=== PATIENT | female | born 1950 | race African-American/Black ===

== ENCOUNTER 2016-11-18 20:05 | Emergency (ER) | payer MEDICARE ==
--- NOTE | ~2016-11-18 | CT71 ---
[facility] A Service [facility] RADIOLOGY TEXT RESULTS PATIENT: CHAIM BLANDON LOCATION: [place] : 52 UNIT #: [id number] AGE: [address]: Lin Flores MD SEX: F ORDER DR: [id number] [facility] [address]. [place], [place] [address] [id number] E MR#: [id number] #: [id number] NAME: CHAIM BLANDON : 1950 SEX: F STUDY DATE/TIME: 11/18/2016 23:22 UNIT: [place] ROOM: STUDY DESCRIPTION: CT Head Wo Contrast Attending Physician: Lin Flores M.D. Ordering Physician: Lin Flores M.D. Primary Care Physician: Uma Chin M.D. MEDICAL IMAGING REPORT This report is preliminary unless electronic signature is present EXAM CT head, noncontrast, 11/18/2016 HISTORY 65-year-old female in the ED after head injury. Fell earlier today. Posterior head laceration and pain. Ethanol intoxication is noted. She states she had an additional fall about 2 weeks ago and has been dizzy since that time. TECHNIQUE CT examination of the head was performed without IV contrast. This CT exam was performed with one or more of the following radiation dose reduction techniques: automatic exposure control, adjustment of mA and/or kV according to patient size, and iterative reconstruction. FINDINGS No acute intracranial abnormality is identified, and there is no visible skull fracture. No evidence of intracranial hemorrhage, mass, mass effect, cerebral edema or hydrocephalus. Incidentally noted old post-traumatic deformity of the medial wall left orbit. No change since 05/17/2016. IMPRESSION 1. Negative head CT examination. 2. Old blowout fracture deformity of the medial wall left orbit. 3. No change since 05/17/2016. Dictated by... Tomás Zaragoza M.D. [facility] A Service [facility] RADIOLOGY TEXT RESULTS PATIENT: CHAIM BLANDON LOCATION: [place] : 54 UNIT #: [id number] AGE: [address]: Lin Flores MD SEX: F ORDER DR: THIS IS AN ELECTRONICALLY VERIFIED REPORT Tomás Zaragoza M.D. at 11/19/2016 9:55 PM JAGW/thee TD: 11/19/2016 10:07 JOB #: [id number] MEDICAL IMAGING REPORT Page 1 of 1 COPY
--- NOTE | ~2016-11-18 | EKG ---
PATIENT: CHAIM BLANDON UNIT #: [id number] Ventricular Rate: 53 BPM Atrial Rate: 53 BPM P-R Interval: 218 ms QRS Duration: 100 ms Q-T Interval: 476 ms QTC Calculation(Bezet): 446 ms P Retsof: 70 degrees Calculated R [place]sof: 23 degrees Calculated T [place]so[place]: 26 degrees Diagnosis Line: Sinus bradycardia with 1st degree A-V block Diagnosis Line: Otherwise normal ECG Diagnosis Line: Diagnosis Line: Confirmed by KATHRYN PURI MD ([id number]) on Diagnosis Line: 11/19/2016 10:06:13 PM INTERPRETING MD: GINA
--- NOTE | ~2016-11-18 | CT52 ---
[facility] A Service of [facility] RADIOLOGY TEXT RESULTS PATIENT: CHAIM BLANDON LOCATION: [facility] : 52 UNIT #: [id number] AGE: [address]: Lin Flores MD SEX: F ORDER DR: [id number] [place] [id number] [facility]. [place], [place] [address] [id number] E MR#: [id number] Acc #: [id number] NAME: CHAIM BLANDON : 1950 SEX: F STUDY DATE/TIME: 11/18/2016 23:27 UNIT: [facility] ROOM: STUDY DESCRIPTION: CT Cervical Spine Wo Cont Attending Physician: Lin Flores M.D. Ordering Physician: Lin Flores M.D. Primary Care Physician: Uma Chin M.D. MEDICAL IMAGING REPORT This report is preliminary unless electronic signature is present EXAM CT cervical spine, 11/18/2016. HISTORY 65-year-old female in the ED after a head injury. Fell. Posterior head laceration. Ethanol intoxication. TECHNIQUE Thin-section axial CT images were obtained from the skull base through the upper margin of T2. Sagittal and coronal images were reconstructed. This CT exam was performed with one or more of the following radiation dose reduction techniques: automatic exposure control, adjustment of mA and/or kV according to patient size, and iterative reconstruction. FINDINGS No fracture or other acute osseous abnormality is demonstrated. Moderately severe degenerative disc space changes at C4-5 and C5-6, including posterior vertebral osteophyte formation. Mild disc space narrowing at C6-7. Cervical vertebral alignment is normal. Reversal of cervical lordosis is noted but is most likely positional. No significant change since the previous study of 05/17/2016. IMPRESSION 1. No acute osseous abnormality. 2. Multilevel degenerative disc space changes, greatest at C4-5 and C5-6. 3. Reversal of cervical lordosis. Cervical vertebral alignment is normal. 4. No change since 05/17/2016. [facility] A Service [facility] RADIOLOGY TEXT RESULTS PATIENT: CHAIM BLANDON LOCATION: [place] : 54 UNIT #: [id number] AGE: [address]: Lin Flores MD SEX: F ORDER DR: Dictated by... Tomás Zaragoza M.D. THIS IS AN ELECTRONICALLY VERIFIED REPORT Tomás Zaragoza M.D. at 11/19/2016 9:55 PM RGW/kamran TD: 11/19/2016 10:11 JOB #: [id number] MEDICAL IMAGING REPORT Page 1 of 1 COPY
--- NOTE | ~2016-11-18 | CR72 ---
[facility] A Service of [facility] RADIOLOGY TEXT RESULTS PATIENT: CHAIM BLANDON LOCATION: [facility] : 52 UNIT #: [id number] AGE: [address]: Lin Flores MD SEX: F ORDER DR: [id number] [facility] [address] [place], [place] [address] [id number] E MR#: [id number] Acc #: [id number] NAME: CHAIM BLANDON : 1950 SEX: F STUDY DATE/TIME: 11/18/2016 21:25 UNIT: [facility] ROOM: STUDY DESCRIPTION: CR Chest Single View Portable Attending Physician: Lin Flores M.D. Ordering Physician: Lin Flores M.D. Primary Care Physician: Uma Chin M.D. MEDICAL IMAGING REPORT This report is preliminary unless electronic signature is present EXAM Portable chest. HISTORY Shortness of air for 2 weeks. Dizzy. Syncope today. FINDINGS The cardiac size and pulmonary vascularity are within normal limits. Mildly tortuous descending thoracic aorta. Very mild left thoracolumbar junction curve. Left shoulder prosthesis. No airspace infiltrates or effusions. IMPRESSION No acute findings and no active disease. Mild cardiac enlargement. Dictated by... Chin Wilson M.D. THIS IS AN ELECTRONICALLY VERIFIED REPORT Chin Wilson M.D. at 11/19/2016 10:34 PM DFL/kamran TD: 11/19/2016 08:56 JOB #: [id number] MEDICAL IMAGING REPORT Page 1 of 1 COPY
[2016-11-18 21:49] LABS: BASOPHIL% 0.9 % (0-2.5); EOSINOPHIL# 0.2 X10e3 (0-0.7); HEMOGLOBIN 12.2 gm/dL (12.0-16.0); LYMPHOCYTE# 1.8 X10e3 (1.0-3.5); LYMPHOCYTE% 56.2 % (17.0-45.0); MEAN CELL VOLUME 91.2 FL (83-96); MEAN CORPUSCULAR HEMOGLOBIN 29.4 PG (28-34); MEAN CORPUSCULAR HGB CONC 32.3 g/dL (30-36); MEAN PLATELET VOLUME 8.5 FL (6.5-11.5); MONOCYTE# 0.3 X10e3 (0-1.0); MONOCYTE% 8.2 % (3.0-12.0); NEUTROPHIL% 29.7 % (40-75); PLATELET COUNT 165 X10e3 (140-420); RED BLOOD COUNT 4.16 X10e (3.90-5.30); RED CELL DISTRIBUTION WIDTH 13.8 % (11.0-15.5); WHITE BLOOD COUNT 3.2 X10e3 (4.0-10.5)
[2016-11-18 21:58] LABS: DIFF IND YES; PROTHROMBIN TIME (PATIENT) 10.4 SECONDS (9.6-11.5)
[2016-11-18 22:13] LABS: ANISOCYTOSIS SL; PLATELET ESTIMATE NORMAL (NORMAL)
[2016-11-18 22:22] LABS: ALBUMIN SERUM 3.7 g/dL (3.5-5.0); BILIRUBIN, DIRECT 0.1 mg/dL (0.0-0.2); BILIRUBIN,INDIRECT 0.4 mg/dL (0.0-0.9); BILIRUBIN,TOTAL 0.5 mg/dL (0.2-2.0); BUN/CREATININE RATIO 23.75; CALCIUM SERUM 8.4 mg/dL (8.4-10.2); CREATININE SERUM 0.8 mg/dL (0.6-1.4); POTASSIUM 3.7 mmol/L (3.5-5.1); PROTEIN TOTAL SERUM 6.8 g/dL (6.0-8.3)
[2016-11-19 00:11] LABS: URINE SOURCE CLEAN CATCH
[2016-11-19 00:18] LABS: URINE APPEARANCE CLEAR; URINE BILIRUBIN NEG (NEG); URINE BLOOD NEG (NEG); URINE COLOR YELLOW; URINE GLUCOSE NEG (NEG); URINE KETONE NEG (NEG); URINE LEUKOCYTE ESTERASE NEG (NEG); URINE NITRATE NEG (NEG); URINE PROTEIN NEG (NEG); URINE SPECIFIC GRAVITY 1.006 (1.003-1.035); URINE UROBILINOGEN 0.2 MG/DL (NEG)
[2016-11-19 00:24] LABS: CULTURE INDICATED? NO
[2016-11-19 00:31] LABS: AMPHETAMINE NEG (NEG); BARBITURATES NEG (NEG); BENZODIAZEPINES NEG (NEG); COCAINE NEG (NEG); MARIJUANA NEG (NEG); OPIATES NEG (NEG); TRICYCLIC ANTIDEPRESSANTS NEG (NEG); U METHADONE NEG (NEG)
== END 2016-11-19 01:05 | disposition home or self-care (01) ==
LOC: CED 20:05
PROVIDERS: Emergency Medicine
DX: S00.93XA Contusion of unspecified part of head, initial encounter (principal); F10.129 Alcohol abuse with intoxication, unspecified; Z88.5 Allergy status to narcotic agent; W18.39XA Other fall on same level, initial encounter; Y92.009 Unspecified place in unspecified non-institutional (private) residence as the place of occurrence of the external cause
CPT/HCPCS: 36415; 70450; 71010; 72125; 80048; 80076; 80307; 81003; 85025; 85610; 93005; 99284; G0480